=== PATIENT | female | born 2000 | race Caucasian/White ===

== ENCOUNTER 2022-11-01 14:00 | Outpatient (CLI) | payer OTHER, SELFPAY | END 2022-11-01 14:01 | disposition home or self-care (01) | PROVIDERS: Visit Provider Advanced Practice Midwife | DX: Z34.90 Encounter for supervision of normal pregnancy, unspecified, unspecified trimester (principal) | CPT/HCPCS: 86592 ==

== ENCOUNTER 2022-11-29 13:48 | Outpatient (CLI) | payer OTHER, SELFPAY ==
--- NOTE | 2022-11-29 14:00 | CRLHL7_ITS ---
For Patients: As a result of the Century Cures Act, medical imaging exams and procedure reports are released immediately into your electronic medical record. You may view this report before your referring provider. If you have questions, please contact your health care provider. INDICATION: F/U RENAL PELVIS, GROWTH COMPARISON: 09/13/2022 TECHNIQUE: Real time gregg scale imaging of the fetus was performed. FINDINGS: Sonographic imaging demonstrates a single living intrauterine gestation. Fetus demonstrates a regular cardiac rate of 126 beats per minute. Fetus has a vertex position. The placenta lies posterior. Amniotic fluid volume appears normal and there is a single deepest vertical pocket: 6.5 cm. The estimated weight is 2096gm which lies at the 63rd %. On the prior OB ultrasound exam dated 09/13/2022 the estimated weight was at the 96th%. BPD 66th percentile. HC 60th percentile. AC 64th percentile. FL 57th percentile. The HC/AC ratio measures 1.06 range (0.96-1.11). IMPRESSION: Sonographic gestational age 33 weeks 2 days and sonographic due date of 01/15/2023. Sonographic age 1 week ahead of the clinical age. Estimated weight 63rd percentile. Abdominal circumference 64th percentile. The right renal pelvis measures 4.7 millimeters. Left renal pelvis measures 6.7 millimeters. Less than 7 millimeters is considered normal at this gestational age. Dictated by Johnnie Whittaker MD @ 12/03/2022 11:52:14 AM (Electronically Signed)
== END 2022-11-29 13:49 | disposition home or self-care (01) ==
LOC: US 13:49
PROVIDERS: Visit Provider Advanced Practice Midwife
DX: Z34.03 Encounter for supervision of normal first pregnancy, third trimester (principal); Z3A.33 33 weeks gestation of pregnancy
CPT/HCPCS: 76816

== ENCOUNTER 2022-12-26 14:30 | Outpatient (CLI) | payer OTHER, SELFPAY | END 2022-12-26 14:31 | disposition home or self-care (01) | LOC: NFLDREF 01-01 22:24 | PROVIDERS: Visit Provider Advanced Practice Midwife | DX: Z34.03 Encounter for supervision of normal first pregnancy, third trimester (principal) | CPT/HCPCS: 87081; 87653 ==

== ENCOUNTER 2023-01-22 05:35 | Inpatient (IN) | payer OTHER, SELFPAY ==
[2023-01-22] VITALS (20 sets, daily range): BP systolic 110–150; BP diastolic 56–78; PULSE 96–120; RESP 16–18; TEMP 36.4–37.3; O2SAT 97; BMI 29.6
--- NOTE | 2023-01-22 06:10 | P.LDBA_ITS ---
Subjective History of Present Illness Time Seen by Provider: 06:00 Date Seen: 01/22/23 Specific Issues/Plans SO: [facility] ( for a while but back together) Transfer at 25.2 weeks. H & P done 01/06 by Chayito Cordova 1. Hx THC use. Negative UDS at NOB. 2. Anxiety and depression. No medications. 3. Mild dilation of kidneys bilaterally. 32 Us f/u: right 0.5cm, left 0.7cm growth 63% 4. Anemia hgb 10.6. EOD iron. Hgb at 34 weeks 11.4 OB Labs:??? Blood type: O+, antibody screen negative.??? Hgb (06/14/22): 11.2??? Platelets (06/14/22): 235??? Rubella: Immune??? RPR: non-reactive??? HBsAg: negative??? HIV: negative??? GC/Chlamydia: negative/negative??? Pap : no records, 2021 per pt report??? Genetic screening: NIPS negative? Urine drug screen: negative IMAGING:??? 1st trimester: Single live IUP at 7.4 weeks. Radiologist recommended to change NURY based on US to 01/27/23 but did not meet criteria to change dates.??? Anatomy scan: Normal anatomy scan except mild bilateral dilation of the renal pelves. Right kidney: 4.3mm, Left kidney: 4.7mm. No major anomalies are seen. Repeat US recommended at 32 weeks to rule out progression and to check growth.?? TDAP: 11/29/2022 Flu: declines RSV: information given 12/13/22 COVID: declines 32wk Mental Health: 11/29/2022 Comments: Elza is being admitted to Labor and Delivery for labor. She is a 23 year old G 1 P 0 at?40.0 weeks gestation. Her full history and physical was dictated by Chayito Cordova on 01/06/23. Please see this for details. ? She states contractions started at 0300, becoming stronger and more intense. Denies any SROM. She is coping well with labor pain/contractions. Her partner [employer] is with her for support. She is planning nitrous oxide for pain management. She declines a waterbirth (consent not signed, Hep C not collected ). OB - Problem Based A/P Additional Plan (1) Uterine contractions: Status: Acute (2) First : Status: Acute Plan Assessment:?? at 40.0 weeks gestation?? GBS negative Patient is coping well with challenges of labor.?? Labor type: Spontaneous, Early labor? complicated by: -Hx THC use. Negative UDS at NOB. -Anxiety and depression. No medications. -Mild dilation of kidneys bilaterally. Resolved on 32 wk f/u u/s: right 0.5cm, left 0.7cm -Anemia hgb 10.6. EOD iron. Hgb at 34 weeks 11.4. ? Plan:?? * Admit to L & D? * IV access: not needed at this time * Monitoring: Intermittent monitoring per protocol * Candidate for analgesia of choice.? Planning nitrous oxide for pain management * Declines waterbirth. Consent not signed and Hep C not previously collected. * Expectant management at this time * Anticipate progress to NVD Delivery/Labor/Induction Plan Plan: expectant management OB Exam Physical Exam Vital signs: Temp Resp BP Pulse Ox 97.6 F 16 139/76 97 01/22/23 05:00 01/22/23 05:00 01/22/23 05:00 01/22/23 05:00 Narrative: VSS, afebrile? General Appearance:? Calm, cooperative.? No acute distress.? Normal affect.? Psychiatric Exam: Alert and oriented, appropriate affect? HEENT: normocephalic, neck supple, full ROM? Respiratory:? Symmetrical chest wall movement.? Normal respiratory effort.? Clear to auscultation? Cardiac:? regular rate and rhythm? Abdomen: Gravid, non tender? Extremities:? normal and trace edema? Skin: warm, dry.??? Ctx:? Q 2-3 min apart.? Moderate? ? FHTs:? Baseline: 120.? Variability: moderate.?? Accels: present.??? Decels:? Likely none (1 possible variable, but did not trace, and none noted after).? SVE: 4/100/-1? Membranes: intact? Detailed Labor and Delivery Exam Patient Gravid: Yes
[2023-01-22] MEDS: OXYTOCIN 10 UNIT/ML INJ IM (09:20)
[2023-01-22] MEDS: LIDOCAINE 1 % PF 30 ML INJECTION (09:21)
--- NOTE | 2023-01-22 09:39 | W.PM.OBVAGDE ---
OB Procedure Vag Delivery Mother Details Mother Details: The patient is a 23 year-old, 1, Para 1, admitted on 01/22/23 at 40 weeks gestation. : 1 Para: 1 Weeks Gestation: 40 Admission Date: 01/22/23 Additional Details Amniotic Membrane Status: SROM Amniotic Membrane Rupture Date: 01/22/23 Amniotic Membrane Rupture Time: 07:44 Amniotic Membrane Fluid Description: Clear Analgesia/Anesthesia Type: None and Local Waterbirth: No Pitcoin: Yes (AMTSL) Intrapartal Events: None and Precipitous Labor <3 Hrs Labor Onset: 07:15 Complete: 07:53 Pushin:53 Heart: heart tones during second stage were intermittently auscultated before, during, and after contractions and remained reassuring throughout. Delivery Details Delivery Date: 01/22/23 Delivery Time: 08:58 Route of delivery: Infant Gender: Male Viability: Alive; Heart Rate Present Position at Delivery: OA Delivery Details: Patient was admitted for spontaneous onset of labor and progressed normally. SROM noted at 0744 with clear fluid. Patient was assumed complete with pushing at 0753. of a viable male at 0858 in kneeling position on the bed. Vertex delivered OA. Nuchal cord reduced after delivery of head. No shoulder. Body delivered easily and without incident. Infant passed to mothers abdomen with a vigorous cry. Cord was clamped and cut at > 5 minutes. APGARS were 8 at one minute and 9 at five minutes respectively. Mouth was bulb suctioned. Intact placenta with a 3 vessel cord delivered spontaneously at 0916. IM pitocin given for AMTSL. Fundus firm. Perineal abrasion, no repair necessary, and bilateral periurethral identified and repaired in typical fashion with local injection of lidocaine 2%. QBL 100 cc. Mother and baby stable; mother plans to breastfeed. Infant weight 7 lb 11 oz. 1 Minute Interval Total Score: 8 5 Minute Interval Total Score: 9 Additional Details Shoulder Dystocia: No Placenta Delivery Time: 09:16 Placental Delivery Description: Spontaneous Delivery repair: Vicryl Procedure Done: Global Blood Loss: 100 Laceration: Periurethral - 1st Degree (Bilateral) Blood Loss Measurement Type: QBL Bakri Used: No Sponge/Need Count Correct: Yes Cord Vessel Description: 3 Vessels, Nuchal Cord and Reduced Event Summary Status: Mother and infant were stable after delivery. Disposition: floor
[2023-01-23 00:35] VITALS: BP 103/64; PULSE 98; RESP 16; TEMP 37.1; O2SAT 96
[2023-01-23 04:50] VITALS: BP 107/61; PULSE 98; RESP 16; TEMP 36.9; O2SAT 96
--- NOTE | 2023-01-23 07:52 | P.OBPN_ITS ---
OB - PN:Subj Subjective Date Seen: 01/23/23 Patient comments OB post-: no complaints and pain well controlled [place] infant status: and doing well [place] feeding status: exclusively Narrative: Elza is a 23 y.o. who was admitted to L & D for labor.? She had an uncomplicated NVD.? ?? The patient feels well.? The pain is well controlled with current medications.? She has no new complaints.? She is breast feeding and reports things are going well.? the patient has done well.? Vitals have been stable.? She has remained afebrile.? Has a good appetite, is tolerating a general diet.? She is voiding without difficulty.? She is passing gas and has not had a bowel movement.? She is ambulating and denies any dizziness.? Has Small amount of rubra lochia.? OB - PN: Obj Exam Physical Exam: Vital signs: Temp Pulse Resp BP Pulse Ox O2 Del Method 98.5 F 98 16 107/61 96 Room Air 01/23/23 04:50 01/23/23 04:50 01/23/23 04:50 01/23/23 04:50 01/23/23 04:50 01/23/23 04:50 Narrative: GENERAL APPEARANCE:? normal affect, alert, no distress? MOOD:? appropriate? HEENT: normocephalic, neck supple, full ROM? CHEST:? Symmetrical chest wall movement.? Normal respiratory effort.? Clear to auscultation ? HEART:? regular rate and rhythm? ABDOMEN:? soft, non-tender. Uterine fundus is firm, 1 below Umbilicus, Midline and is appropriate for the stage of recovery.? Bowel sounds present.? PERINEUM:? mild edema of the perineum, there is a 1st degree periurethral laceration that is healing well.? EXTREMITIES:? normal and no edema? OB - PN: Obj Data Labs Labs: Laboratory Results - last 24 hr 01/23/23 06:05 Hgb 10.0 L OB - PN: A/P Delivery Assessment and Plan (1) care and examination immediately after delivery: Status: Acute (2) Lactating mother: Status: Acute Plan day: 1 Plan: routine care Comments: G 1 P 1 status post uncomplicated NVD??? 1.? Continue route PP cares? 2.? .? May see if desired? 3.? Anticipate discharge home tomorrow?
[2023-01-23 08:28] VITALS: BP 100/60; PULSE 92; RESP 16; TEMP 36.4; O2SAT 96
[2023-01-23] MEDS: DOCUSATE SODIUM 100 MG CAPSULE PO (08:37)
[2023-01-23 16:32] VITALS: BP 105/61; PULSE 90; RESP 16; TEMP 36.9; O2SAT 97
[2023-01-24 00:56] VITALS: BP 107/62; PULSE 87; RESP 18; TEMP 36.7; O2SAT 96
[2023-01-24 07:50] VITALS: BP 96/60; PULSE 93; RESP 16; TEMP 36.6; O2SAT 97
[2023-01-24] MEDS: DOCUSATE SODIUM 100 MG CAPSULE PO (07:53)
--- NOTE | 2023-01-24 08:08 | PM.OBDSVD1 ---
DS: Providers Provider Date Seen: 01/24/23 Date of admission: 01/22/23 05:35 Primary care physician: Not a Local Provider Admitting Clinician: Penny Cordova CNM Attending Physician on discharge: Penny Cordova CNM Date of Discharge: 01/24/23 DS: Diagnosis Discharge Diagnosis (1) Lactating mother: Status: Acute (2) care following vaginal delivery: Status: Acute (3) JONH (generalized anxiety disorder): Status: Chronic Exam Narrative: Exam Narrative: GENERAL APPEARANCE:? normal affect, alert, no distress? MOOD:? appropriate? CHEST:? clear to auscultation and percussion? HEART:? regular rate and rhythm? ABDOMEN:? soft, non-tender the uterine fundus is U/2 and is appropriate for the stage of recovery.? PERINEUM:? mild edema of the perineum, there is a 1st that is healing well.? EXTREMITIES:? normal and no edema? Const: Vital Signs, click to edit/add: Vital Signs - 24 hr 01/23/23 08:28 01/23/23 16:32 01/24/23 00:56 Temperature 97.6 F 98.5 F 98.0 F Pulse Rate [Blood Pressure Cuff] 92 90 87 Respiratory Rate 16 16 18 Blood Pressure [Ri ght Arm] 100/60 105/61 107/62 Pulse Oximetry 96 97 96 Oxygen Delivery Me thod Room Air Room Air Room Air Documenting provider has reviewed patient's vital signs: yes OB - DS: Summary Hospital Course Hospital Course: The patient is a 23 year old G 1 P 1 at 40.2 weeks gestation that was admitted to the Center on 01/22/23 for active labor at term. She had an uncomplicated vaginal delivery. She delivered a viable male infant. She is breast feeding and feels that it is going well. The pain is well controlled with current medications.? She has no new complaints.? Urinary output is adequate and she is voiding without difficulty.? Has a good appetite, is tolerating a general diet, is passing flatus, and has not had a bowel movement.? Has scant amount of rubra lochia.? She is ambulating well.? the patient has done well. She is planning on mini pill for control. She has a history of anxiety. Denies need for medication at this time. Reviewed warning signs and she is aware to contact us if concerns arise. Her Hgb is 10.0 and she plans to continue taking her PO iron supplementation EOD. Peripartum Data delivery method: Vaginal Laceration description: Perineal - 1st Degree Episiotomy description: None complications: none [place] Gender: Male Infant Discharge Plan: Home Status at Discharge Functional status at discharge: independent ambulation Overall status at discharge: patient is progressing back to baseline Time Spent with Patient Time attestation: Total time spent providing and/or coordinating discharge services: Discharge Plan Discharge Disposition: Home, Self-Care Date of Admission: 01/22/23 05:35 Attending Provider on Discharge: Paty Mcbride Primary Care Provider: Provider,Not a Local Condition: Stable Anticipated Discharge Date/Time: 01/24/23 10:00 Discharge Medications: New docusate sodium 100 mg Capsule 100 mg PO DAILY Qty: 90 0RF Rx Instructions: Take 1-2 tablets daily as needed for constipation. ibuprofen 600 mg Tablet 600 mg PO Q6H PRNQty: 30 0RF Continued PNV-DHA 27 mg iron-1 mg -300 mg capsule 1 cap PO QDAY Qty: 90 3RF ferrous sulfate [Feosol] 325 mg (65 mg iron) tablet 325 mg PO Q OTHER DAY Discharge Orders: Discharge Order (Routine); Ordered 01/24/23 Ordered By: Paty Mcbride Patient Education: OB Over the Counter Medication Information, OB Vaginal/Breast Feeding Additional Instructions: Discharge instructions were reviewed with the patient including signs and symptoms of infection and home going medications.? Lifting Restrictions: 20 pounds for 6? weeks? ?? Do not drive while taking narcotic pain meds.? Off Work or School for 6 weeks.? ?? Symptoms to report to doctor:? -Bleeding that saturates more than one pad per hour? -Passing clots larger than the size of a golf ball? -Pain not relieved by prescribed medication? -Fever above 100.4 degrees Fahrenheit? -A foul vaginal odor? -Difficulty in emotions, mood and functions? -Thoughts of hurting yourself and/or ? -Painful, reddened area in your breast? -Any drainage, redness or tenderness in your IV/epidural site? -Severe headache that doesn't improve after taking medications? -Changes in vision, including temporary loss of vision, blurred vision, and/or light sensitivity? -Upper abdominal pain (usually under ribs on the right side)? -Decrease in urination or painful, frequent urinating? -Chest pain? -Shortness of breath? -Tenderness or pain with redness and/swelling in the calf(s) of your leg? ?? Follow Up in clinic in 2 and 6 weeks.? ?? consultation services are available to all mothers and babies for the first year after delivery.? To make an appointment, please call [phone].? Follow Up Appointments: [facility] [Provider Group] Provider,Not a Local [Primary Care Provider] - Forms: MyHealth Info Instructions
== END 2023-01-24 12:39 | disposition home or self-care (01) | DRG 807 ==
LOC: OB 05:35
PROVIDERS: Advanced Practice Midwife; Admitting Provider Advanced Practice Midwife; Visit Provider Advanced Practice Midwife
DX: O99.344 Other mental disorders complicating childbirth (principal); Z37.0 Single live birth; F32.A Depression, unspecified; O70.0 First degree perineal laceration during delivery; F41.1 Generalized anxiety disorder; Z3A.40 40 weeks gestation of pregnancy; O99.02 Anemia complicating childbirth; D64.9 Anemia, unspecified
CPT/HCPCS: 36415; 85018; A9270; J2001; J2590

== ENCOUNTER 2023-11-07 14:00 | Outpatient (CLI) | payer OTHER, MEDICAID, SELFPAY ==
[2023-11-07 18:35] LABS: Chlamydia DNA Amplified* NOT DETECTED (No Detected); GC DNA Amplified* NOT DETECTED (No Detected)
== END 2023-11-07 14:01 | disposition home or self-care (01) ==
PROVIDERS: Visit Provider Midwife
DX: Z34.91 Encounter for supervision of normal pregnancy, unspecified, first trimester (principal); Z3A.12 12 weeks gestation of pregnancy
CPT/HCPCS: 76801; 86592; 86703; 86704; 86706; 86762; 86787; 86803; 86850; 86900; 86901; 87086; 87340; 87491; 87591

== ENCOUNTER 2024-01-02 07:11 | Outpatient (CLI) | payer OTHER, MEDICAID, SELFPAY ==
--- NOTE | 2024-01-02 07:15 | CRLHL7_ITS ---
For Patients: As a result of the Century Cures Act, medical imaging exams and procedure reports are released immediately into your electronic medical record. You may view this report before your referring provider. If you have questions, please contact your health care provider. INDICATION: Evaluate anatomy. COMPARISON: 11/07/2023 TECHNIQUE: Real time gregg scale imaging of the fetus was performed as well as color Doppler analysis of the umbilical vessels. FINDINGS: Sonographic imaging demonstrates a single living intrauterine gestation. Fetus demonstrates a regular cardiac rate of 145 beats per minute. Fetus has a variable position. The placenta lies anteriorly without evidence of placenta previa. Edge of the placenta is located 2.8 cm from the internal cervical os. Amniotic fluid volume appears normal. Single deepest vertical pocket: 5.2 cm. The cervix is closed and measures 4.1 cm in length. The composite ultrasound gestational age is calculated at 20 weeks 6 days with an estimated sonographic due date of 05/15/2024. The estimated weight is 358 grams which lies at the 41st %. The following biometric measurements were obtained: Biparietal diameter: 4.8 cm/20 weeks 3 days 46th% Head circumference: 17.8 cm/20 weeks 2 days 26th% Abdominal circumference: 15.6 cm/20 weeks 5 days 50th% Femur length: 3.3 cm/20 weeks 2 days 31st% The HC/AC ratio measures: 1.14 range (1.06-1.25) On anatomic survey, there is a normal appearance of the cerebral ventricles, cavum septi pellucidi, cisterna magna and cerebellum. The nose, lips, and facial profile appear normal. The cervical, thoracic and lumbar spine are incompletely visualized. There is a normal four-chamber heart view and the left and right ventricular outflow tracts appear normal. The diaphragm and stomach appear normal. The kidneys and bladder also appear normal. There is a normal three-vessel cord and there is an eccentric placental cord insertion site located 2.2 cm from the placental edge. The four extremities appear normal. IMPRESSION: Concordance of clinical and sonographic dating. Incomplete visualization of the spine. Remainder of the anatomic survey normal. Short-term follow-up recommended. Dictated by Johnnie Whittaker MD @ 01/02/2024 12:25:53 PM (Electronically Signed)
== END 2024-01-02 07:12 | disposition home or self-care (01) ==
LOC: US 07:12
PROVIDERS: Visit Provider Midwife
DX: Z34.92 Encounter for supervision of normal pregnancy, unspecified, second trimester (principal); Z3A.20 20 weeks gestation of pregnancy
CPT/HCPCS: 76805

== ENCOUNTER 2024-01-30 09:10 | Outpatient (CLI) | payer MEDICAID, SELFPAY ==
--- NOTE | 2024-01-30 09:15 | CRLHL7_ITS ---
For Patients: As a result of the Century Cures Act, medical imaging exams and procedure reports are released immediately into your electronic medical record. You may view this report before your referring provider. If you have questions, please contact your health care provider. INDICATION: f/u SPINE from anatomy scan COMPARISON: 01/02/2024 TECHNIQUE: Real time gregg scale imaging of the fetus was performed. FINDINGS/IMPRESSION: Sonographic imaging demonstrates a single living intrauterine gestation. Fetus demonstrates a regular cardiac rate of 152 beats per minute. Fetus has a vertex position. The placenta lies anteriorly. Amniotic fluid volume appears normal. Single deepest vertical pocket: 4.7 cm. The composite ultrasound gestational age is calculated at 24 weeks 3 days with an estimated sonographic due date of 05/18/2024. The estimated weight is 701 grams which lies at the 36th %. The following biometric measurements were obtained: Biparietal diameter: 5.9 cm/24 weeks 0 days 22nd% Head circumference: 22.7 cm/24 weeks 5 days 34th% Abdominal circumference: 20.1 cm/24 weeks 5 days 45th% Femur length: 4.3 cm/24 weeks 1 day 25th% The HC/AC ratio measures: 1.13 range (1.04-1.22) The cervical, thoracic and lumbar spine are well visualized and appear normal. Dictated by Johnnie Whittaker MD @ 01/30/2024 10:07:02 AM (Electronically Signed)
== END 2024-01-30 09:11 | disposition home or self-care (01) ==
LOC: US 09:10
PROVIDERS: Visit Provider Midwife
DX: O35.FXX0 Maternal care for other (suspected) fetal abnormality and damage, fetal musculoskeletal anomalies of trunk, not applicable or unspecified (principal); Z3A.24 24 weeks gestation of pregnancy
CPT/HCPCS: 76816

== ENCOUNTER 2024-02-27 09:50 | Outpatient (CLI) | payer MEDICAID, SELFPAY | END 2024-02-27 09:51 | disposition home or self-care (01) | LOC: NFLDREF 03-01 06:16 | PROVIDERS: Visit Provider Advanced Practice Midwife | DX: Z34.93 Encounter for supervision of normal pregnancy, unspecified, third trimester (principal); Z3A.28 28 weeks gestation of pregnancy | CPT/HCPCS: 86592 ==

== ENCOUNTER 2024-04-09 11:22 | Outpatient (CLI) | payer MEDICAID, SELFPAY | END 2024-04-09 11:23 | disposition home or self-care (01) | LOC: NFLDREF 04-10 13:10 | PROVIDERS: Visit Provider Advanced Practice Midwife | DX: Z34.93 Encounter for supervision of normal pregnancy, unspecified, third trimester (principal); Z3A.34 34 weeks gestation of pregnancy | CPT/HCPCS: 82728 ==

== ENCOUNTER 2024-04-22 13:15 | Outpatient (CLI) | payer MEDICAID, SELFPAY | END 2024-04-22 13:16 | disposition home or self-care (01) | LOC: NFLDREF 04-25 07:05 | PROVIDERS: Visit Provider Advanced Practice Midwife | DX: Z34.83 Encounter for supervision of other normal pregnancy, third trimester (principal) | CPT/HCPCS: 87081; 87653 ==

== ENCOUNTER 2024-05-18 11:30 | Inpatient (IN) | payer MEDICAID, SELFPAY ==
[2024-05-18] VITALS (29 sets, daily range): BP systolic 110–136; BP diastolic 57–72; PULSE 82–122; RESP 16–18; TEMP 36.6–36.9; O2SAT 94–99; BMI 29.2
[2024-05-18 10:54] LABS: Amnisure Rom* POSITIVE
--- NOTE | 2024-05-18 12:25 | P.LDBA_ITS ---
Subjective History of Present Illness Narrative: Elza is being admitted to Labor and Delivery for PROM. She is a 24 year old at 40.1 weeks gestation. Her full history and physical was dictated by Dilip Mei CNM on 04/30/24. Please see this for details. Elza had AROM around 0130 this am but has only felt a gradual increase in cramping since them. We discussed augmentation and risks of prolonged AROM. We discussed augmenting with Pitocin vs expectant management. She would like to proceed with expectant management. She would like to pump, do labor warm up and consider stripping her membranes to help encourage spontaneous contractions. With cervical exam she was 3cm/80%/-2 but was able to easily stretch to 4cm. Did palpate a budging bag on exam. discussed AROM of the forebag which she desired and was performed. AROM with a moderate amount of clear fluid. Specific Issues/Plans G 2 P 1001 Partner:??Harinder Son: Johny H&P completed by Dilip Alejandro CNM on 04/30/24?? ? #Short interval # Rubella [id number] PP #Anemia 10.8 recommended iron supplementation at 34 weeks Imaging:? 1st trimester: 11/07/2023 SLIUP 12 w4d, NURY by US 05/18/2023 Anatomy: 01/02/2024 Normal findings but inadequate views of spine, F/U 4 weeks ordered?? 01/30/2024: Follow up with normal findings and growth ? COVID:??declined Flu:??declined? Tdap:?03/26/24 RSV:03/26/24? Hep B: non-immune, not high risk 32wk Mental Health:?03/26/2024 34wk hgb: 04/09/2024 (10.8) Pap: (Only high-risk abnormal pap in problem list)? OB - Problem Based A/P Additional Plan (1) PROM (premature rupture of membranes): Status: Acute (2) Short interval between pregnancies affecting , antepartum: Status: Acute (3) JONH (generalized anxiety disorder): Problem details: No current meds Status: Chronic (4) Anemia: Status: Acute Plan ASSESSMENT:? at 40.1 weeks gestation? GBS negative? complicated by: sport interpregnancy interval, JONH, anemia? Labor type: PROM, expectant management ? Blood type:?O+ ?? PLAN:? 1. Reviewed risks and benefits of augmentation with Pitocin vs expectant management vs AROM of fore bag. Pt prefers AROM followed by expectant management at this time. Will reevaluate for need for further intervention in 4-2. hours and PRN. Encouraged pumping and labor warm up circuit.? 3. Candidate for analgesia of choice. Planning unmedicated .? 4. Anticipate ? 5. Expectant management at this time.? 6. IV not needed at this time. Consider if patient condition changes. 7. Intermittent monitoring per policy. Delivery/Labor/Induction Plan Plan: expectant management OB Result Labs Blood Type: O (+) positive Rubella: immune RPR/VDLR: nonreactive GBS Status: negative HBsAG: negative OB Exam Physical Exam Vital signs: Temp Pulse BP Pulse Ox 98.3 F 117 H 110/70 98 05/18/24 12:22 05/18/24 10:27 05/18/24 10:27 05/18/24 11:00 Narrative: Psychiatric:? Alert and oriented x3? HEENT:? Normocephalic, atraumatic? Neck:? Supple without adenopathy or thyromegaly? Lungs:? Clear to auscultation bilaterally? Heart:? Regular rate and rhythm, no murmur, rub or gallop? Abdomen:? Soft, nontender, and gravid? Extremities:? No edema or erythema? Detailed Labor and Delivery Exam Patient Gravid: Yes Dilation (cm): 3 Effacement (%): 80 Cervix position: mid Consistency: soft Contraction Frequency: occasional cramping/tightening Contraction intensity: Mild Fetus (Single) Station: -2 Amniotic Membrane Status: SROM (AROM of fore bag ) Amniotic Membrane Fluid Description: Clear Heart Rate Baseline: 140 Monitor Accelerations: Present Monitor Decelerations: None (one variable at beginning of tracing, now resolved. ) Group Home Variability: Moderate (6-25)
--- NOTE | 2024-05-18 17:45 | W.PM.OBVAGDE ---
OB Procedure Vag Delivery Mother Details Mother Details: The patient is a 24 year-old, 2, Para 1, admitted on 05/18/24 at Days gestation. : 2 Para: 2 Weeks Gestation: 40.1 Admission Date: 05/18/24 Additional Details Amniotic Membrane Status: SROM (AROM of fore bag ) Amniotic Membrane Rupture Date: 05/18/24 Amniotic Membrane Rupture Time: 01:00 Amniotic Membrane Fluid Description: Clear Analgesia/Anesthesia Type: None Waterbirth: No Pitcoin: No Intrapartal Events: Precipitous Labor <3 Hrs Delivery augmentation: rupture of membranes (AROM of fore bag) Labor Onset: 16:40 Complete: 17:18 (presumed with spontaneous pushing ) Pushin:18 Heart: heart tones during second stage were not obtained by doppler as it only lasted 2 minutes. Before second stage they were auscultated in the 150's without decreases heard. Delivery Details Delivery Date: 05/18/24 Delivery Time: 17:20 Route of delivery: Gender: Female Infant Viability: Alive; Heart Rate Present Position at Delivery: OA Delivery Details: Patient was admitted for PROM and progressed with AROM of a fore bag for augmentation. SROM noted at 0100 with clear fluid. Patient was presumed complete with spontaneous pushing at 1718. of a viable female at 1720 in hands and knees in the bed. Vertex delivered OA. No nuchal cord or shoulder. Body delivered easily and without incident. Infant passed to through the mothers legs to her abdomen with a vigorous cry. Cord was clamped and cut at > 5 minutes. APGARS were 8 at one minute and 9 at five minutes respectively. Mouth was bulb suctioned. Intact placenta with a 3 vessel cord delivered spontaneously at 1733. Fundus firm. No lacerations were identified. QBL 25 cc. Mother and baby stable; mother plans to breastfeed. weight pending.? 1 Minute Interval Total Score: 8 5 Minute Interval Total Score: 9 Additional Details Shoulder Dystocia: No Placenta Delivery Time: 17:33 Placental Delivery Description: Spontaneous Procedure Done: Global Blood Loss: 25 Laceration: None Blood Loss Measurement Type: QBL Bakri Used: No Sponge/Need Count Correct: Yes Cord Vessel Description: 3 Vessels Event Summary Status: Mother and were stable after delivery. Disposition: floor
[2024-05-18] MEDS: OXYTOCIN 10 UNIT/ML INJ IM (18:32)
[2024-05-18] MEDS: miSOPROStoL 800 MCG/4 TABLET PR (18:53)
[2024-05-18] MEDS: IBUPROFEN 600 MG TABLET PO (21:11)
[2024-05-19 04:16] VITALS: BP 113/65; PULSE 86; RESP 16; TEMP 36.3; O2SAT 96
[2024-05-19 06:10] LABS: Hemoglobin* 10.2 gm/dL (12.0-16.0)
--- NOTE | 2024-05-19 07:48 | PM.OBDSVD1 ---
DS: Providers Provider Date Seen: 05/19/24 Date of admission: 05/18/24 11:30 Primary care physician: Not a Local Provider Admitting Clinician: Paty Mcbride CNM Attending Physician on discharge: TIFFANIE Tomlinson Date of Discharge: 05/19/24 DS: Diagnosis Discharge Diagnosis (1) care and examination of lactating mother: Status: Acute Exam Narrative: Exam Narrative: GENERAL APPEARANCE:? normal affect, alert, no distress MOOD:? appropriate CHEST:? clear to auscultation HEART:? regular rate and rhythm ABDOMEN:? soft, non-tender the uterine fundus is At Umbilicus, Midline and is appropriate for the stage of recovery. PERINEUM:? no laceration, deferred EXTREMITIES:? normal and minimal edema Const: Vital Signs, click to edit/add: Vital Signs - 24 hr 05/18/24 10:25 05/18/24 10:27 05/18/24 10:27 Temperature 98.3 F Pulse Rate 117 H Pulse Rate [Pulse Oximeter] Respiratory Rate Blood Pressure 110/70 Blood Pressure [Le ft Arm] Pulse Oximetry [facility] 05/[facility] 10:30 05/18/24 10:35 05/18/24 10:40 Temperature Pulse Rate Pulse Rate [Pulse Oximeter] Respiratory Rate Blood Pressure Blood Pressure [Le ft Arm] Pulse Oximetry 97 98 98 [facility] 05/18/24 10:45 05/18/24 10:50 05/18/24 10:55 Temperature Pulse Rate Pulse Rate [Pulse Oximeter] Respiratory Rate Blood Pressure Blood Pressure [Le ft Arm] Pulse Oximetry 98 99 99 [facility] 05/18/24 11:00 05/18/24 12:22 05/18/24 13:47 Temperature 98.3 F 98.2 F Pulse Rate Pulse Rate [Pulse Oximeter] Respiratory Rate Blood Pressure Blood Pressure [Le ft Arm] Pulse Oximetry 98 [facility] 05/18/24 14:45 05/18/24 15:37 05/18/24 16:40 Temperature 98.2 F 98.2 F 97.8 F Pulse Rate 90 90 Pulse Rate [Pulse Oximeter] Respiratory Rate 16 Blood Pressure Blood Pressure [Le ft Arm] Pulse Oximetry [facility] 05/18/24 17:34 05/18/24 17:35 05/18/24 17:49 Temperature 97.8 F Pulse Rate 82 105 H Pulse Rate [Pulse Oximeter] Respiratory Rate 18 Blood Pressure 136/63 116/68 Blood Pressure [Le ft Arm] Pulse Oximetry [facility] 05/18/24 17:49 05/18/24 18:03 05/18/24 18:04 Temperature Pulse Rate 107 H Pulse Rate [Pulse Oximeter] Respiratory Rate 18 18 Blood Pressure 119/72 Blood Pressure [Le ft Arm] Pulse Oximetry [facility] 05/18/24 18:18 05/18/24 18:19 05/18/24 18:33 Temperature Pulse Rate 106 H Pulse Rate [Pulse Oximeter] Respiratory Rate 18 18 Blood Pressure 121/71 Blood Pressure [Le ft Arm] Pulse Oximetry [facility] 05/18/24 18:34 05/18/24 18:48 05/18/24 18:49 Temperature Pulse Rate 93 85 Pulse Rate [Pulse Oximeter] Respiratory Rate 18 Blood Pressure 115/57 L 123/67 Blood Pressure [Le ft Arm] Pulse Oximetry [facility] 05/18/24 19:04 05/18/24 19:04 05/18/24 19:19 Temperature Pulse Rate 92 100 Pulse Rate [Pulse Oximeter] Respiratory Rate 18 Blood Pressure 125/69 132/72 Blood Pressure [Le ft Arm] Pulse Oximetry [facility] 05/18/24 19:19 05/18/24 19:34 05/18/24 19:34 Temperature Pulse Rate 102 H Pulse Rate [Pulse Oximeter] Respiratory Rate 18 18 Blood Pressure 133/68 Blood Pressure [Le ft Arm] Pulse Oximetry [facility] 05/18/24 23:50 05/19/24 04:16 Temperature 98.4 F 97.4 F L Pulse Rate Pulse Rate [Pulse Oximeter] 108 H 86 Respiratory Rate 16 16 Blood Pressure Blood Pressure [Le ft Arm] 114/66 113/65 Pulse Oximetry 94 96 [facility] Room Air OB - DS: Summary Hospital Course Hospital Course: The patient is a 24 year old G 2now P 2003 at 40 1/7 weeks gestation that was admitted to the Center on 05/18/24 for PROM at term. She had an uncomplicated vaginal delivery. She delivered a viable female . She is breast feeding. the patient has done well. Vitals have been stable.? She has remained afebrile.? Has a good appetite, is tolerating a general diet.? She is voiding without difficulty.? She is passing gas and has not had a bowel movement.? She is ambulating and denies any dizziness.? Has small amount of rubra lochia. She is planning an IUD possibly for prevention.? ?? Problems: none? ?? plan:? Discharge home with baby this evening if peds discharges baby.? Follow up in 2 weeks and 6 weeks.? , may see if needed? Hgb 10.2. Iron supplement to be continued at home for a couple of weeks orally every other day? ? Labs WNL or stable with trending? ? ? Call for signs/symptoms of preeclampsia? ation. You may wean off of it when your stools return to normal.? Peripartum Data Infant delivery method: Vaginal Episiotomy description: None Gender: Female Discharge Plan: Home Status at Discharge Overall status at discharge: patient is progressing back to baseline Time Spent with Patient Time attestation: Total time spent providing and/or coordinating discharge services: Time spent: Less than 30 minutes Discharge Plan Discharge Disposition: Home, Self-Care Date of Admission: 05/18/24 11:30 Attending Provider on Discharge: Dia Sparks Primary Care Provider: Provider,Not a Local Condition: Stable Anticipated Discharge Date/Time: 05/19/24 19:48 Discharge Medications: Continued PNV cmb#95-ferrous fumarate-FA 28 mg iron- 800 mcg tablet 1 tab PO QDAY Qty: 90 0RF Discharge Orders: Discharge Order (Routine); Ordered 05/19/24 Ordered By: Dia Sparks Patient Education: OB [place] [facility], OB Vaginal/Breast Feeding Additional Instructions: Discharge instructions were reviewed with the patient including signs and symptoms of infection and home going medications Nothing vaginally for 6 weeks: no tampons or intercourse Do not drive while taking narcotic pain medication(s) Off Work or School for 6 weeks Symptoms to report to doctor: Bleeding that saturates more than one pad per hour Passing clots larger than the size of a golf ball Pain not relieved by prescribed medication Fever above 100.4 degrees Fahrenheit A foul vaginal odor Difficulty in emotions, mood, and functions Thoughts of hurting yourself and/or Painful, reddened area in your breast Any drainage, redness, or tenderness in your IV/epidural site Severe headache that doesn't improve after taking medications Changes in vision, including temporary loss of vision, blurred vision, and/or light sensitivity Upper abdominal pain (usually under ribs on the right side) Decrease in urination or painful, frequent urinating Chest pain Shortness of breath Tenderness or pain with redness and/swelling in the calf(s) of your leg 2-week visit: discuss infant feeding concerns, review control options and screen for anxiety/depression. 6-week visit for an annual exam. consultation services are available to all mothers and babies for the first year after delivery.? To make an appointment, please call [phone]. For pain control of perineum, breast and pelvic pain, take 600 mg Ibuprofen every 6 hours as needed by mouth or 1000 mg acetaminophen (Tylenol) every 6 hours by mouth as needed. You can alternate these so you are taking something every 3 hours as needed. A heating pad can also be used for your abdomen or breasts. You may also take docusate sodium up to twice daily to soften your stools and help to prevent constipation. Activity Level: Activity as Tolerated Discharge Diet: Regular Follow Up Appointments: Provider,Not a Local [Primary Care Provider] - Forms: [employer] Info Instructions
[2024-05-19 08:43] VITALS: BP 104/65; PULSE 100; RESP 16; TEMP 37.4; O2SAT 97
[2024-05-19 13:00] VITALS: BP 112/64; PULSE 100; RESP 16; TEMP 36.9; O2SAT 97
[2024-05-19 16:59] VITALS: BP 107/63; PULSE 96; RESP 16; TEMP 36.7; O2SAT 96
[2024-05-19] MEDS: MEASLES,MUMPS,RUBELLA VACC/PF 1 DOSE INJ 1 EACH SUBCUT (17:20)
--- NOTE | 2024-05-19 20:50 | PC.NURSE ---
Per patient does not want to discharge home tonight.
[2024-05-20 02:19] VITALS: BP 126/76; PULSE 78; RESP 16; TEMP 36.6; O2SAT 97
[2024-05-20 07:34] VITALS: BP 108/69; PULSE 83; RESP 16; TEMP 36.8; O2SAT 96
--- NOTE | 2024-05-20 08:52 | P.DS_ITS ---
DS: Providers Provider Date Seen: 05/20/24 Date of admission: 05/18/24 11:30 Primary care physician: Not a Local Provider Admitting Clinician: Paty Mcbride CNM Attending Physician on discharge: Evita Alejandro CNM Date of Discharge: 05/20/24 DS: Diagnosis Discharge Diagnosis (1) care and examination of lactating mother: Status: Acute (2) Anemia: Status: Acute Exam Narrative: Exam Narrative: VSS, afebrile GENERAL APPEARANCE: ?normal affect, alert, no distress MOOD: ?appropriate HEENT: normocephalic, neck supple, full ROM CHEST: ?Symmetrical chest wall movement. ?Normal respiratory effort. ?Clear to auscultation HEART: ?regular rate and rhythm ABDOMEN: ?soft, non-tender. Uterine fundus is firm, at Umbilicus, Midline and is appropriate for the stage of recovery. ?Bowel sounds present. PERINEUM: ?mild edema of the perineum, intact. EXTREMITIES: ?normal and no edema Const: Vital Signs, click to edit/add: Vital Signs - 24 hr 05/19/24 13:00 05/19/24 16:59 05/20/24 02:19 Temperature 98.4 F 98.0 F 97.8 F Pulse Rate [Pulse Oximeter] 100 96 78 Respiratory Rate 16 16 16 Blood Pressure [Le ft Arm] 112/64 107/63 126/76 Pulse Oximetry 97 96 97 Oxygen Delivery [facility] Room Air Room Air Room Air 05/20/24 07:34 Temperature 98.3 F Pulse Rate [Pulse Oximeter] 83 Respiratory Rate 16 Blood Pressure [Le ft Arm] 108/69 Pulse Oximetry 96 Oxygen Delivery [facility] Room Air Documenting provider has reviewed patient's vital signs: yes OB - DS: Summary Hospital Course Hospital Course: Elza is a 24 y.o. who was admitted to [facility] for labor. ?She had an uncomplicated NVD.?The patient feels well. ?The pain is well controlled with current medications. ?She has no new complaints. ?She is breast feeding and reports things are not going well today, baby is not latching well. She will have nursing help with this before discharge.? the patient has done well.? Vitals have been stable.? She has remained afebrile.? Has a good appetite, is tolerating a general diet. ?She is voiding without difficulty.? She is passing gas and has not had a bowel movement.? She is ambulating and denies any dizziness.? Has Small amount of rubra lochia. ?She is planning an IUD for prevention. Peripartum Data delivery method: Vaginal Laceration description: None complications: none Infant Gender: Female Discharge Plan: Home Status at Discharge Functional status at discharge: independent ambulation Overall status at discharge: patient is progressing back to baseline Time Spent with Patient Time attestation: Total time spent providing and/or coordinating discharge services: Time spent: Less than 30 minutes Discharge Plan Discharge Disposition: Home, Self-Care Date of Admission: 05/18/24 11:30 Attending Provider on Discharge: Dia Sparks Primary Care Provider: Provider,Not a Local Condition: Stable Anticipated Discharge Date/Time: 05/19/24 19:48 Discharge Medications: Continued PNV cmb#95-ferrous fumarate-FA 28 mg iron- 800 mcg tablet 1 tab PO QDAY Qty: 90 0RF Discharge Orders: Discharge Order (Routine); Ordered 05/20/24 Ordered By: Evita Alejandro Patient Education: OB [place] [facility], OB Vaginal/Breast Feeding, OB Over the Counter Medication Information Additional Instructions: Discharge instructions were reviewed with the patient including signs and symptoms of infection and home going medications Nothing vaginally for 6 weeks: no tampons or intercourse Off Work or School for 6 weeks Symptoms to report to doctor: * Bleeding that saturates more than one pad per hour * Passing clots larger than the size of a golf ball * Pain not relieved by prescribed medication * Fever above 100.4 degrees Fahrenheit * A foul vaginal odor * Difficulty in emotions, mood, and functions * Thoughts of hurting yourself and/or * Painful, reddened area in your breast * Any drainage, redness, or tenderness in your IV/epidural site * Severe headache that doesn't improve after taking medications * Changes in vision, including temporary loss of vision, blurred vision, and/or light sensitivity * Upper abdominal pain (usually under ribs on the right side) * Decrease in urination or painful, frequent urinating * Chest pain * Shortness of breath * Tenderness or pain with redness and/swelling in the calf(s) of your leg 2-week visit: discuss infant feeding concerns, review control options and screen for anxiety/depression. 6-week visit for an annual exam. consultation services are available to all mothers and babies for the first year after delivery.? To make an appointment, please call [phone]. For pain control of perineum, breast and pelvic pain, take 600 mg Ibuprofen every 6 hours as needed by mouth or 1000 mg acetaminophen (Tylenol) every 6 hours by mouth as needed. You can alternate these so you are taking something every 3 hours as needed. A heating pad can also be used for your abdomen or breasts. You may also take docusate sodium up to twice daily to soften your stools and help to prevent constipation. Activity Level: Activity as Tolerated Discharge Diet: Regular Follow Up Appointments: [facility] [Provider Group] Forms: [facility] Info Instructions
== END 2024-05-20 11:26 | disposition home or self-care (01) | DRG 807 ==
LOC: OB OUT 11:30 → OB 11:30
PROVIDERS: Admitting Provider Advanced Practice Midwife; Visit Provider Advanced Practice Midwife
DX: O42.02 Full-term premature rupture of membranes, onset of labor within 24 hours of rupture (principal); Z37.0 Single live birth; Z3A.40 40 weeks gestation of pregnancy; O99.02 Anemia complicating childbirth; D64.9 Anemia, unspecified; O99.344 Other mental disorders complicating childbirth; F41.1 Generalized anxiety disorder; Z78.9 Other specified health status
CPT/HCPCS: 36415; 84112; 85018; 86592; G0463; A9270; J2590

== ENCOUNTER 2024-05-21 11:13 | Outpatient (CLI) | payer MEDICAID, SELFPAY ==
--- NOTE | 2024-05-21 15:27 | P.LACCB_ITS ---
Consult Note - Mom Date of Visit Date of visit: 05/21/24 Reason for consultation: Assistance Needed and Infant Weight Concern Visit Code: Visit Patient's Information Phone number: [phone] : 2 Para: 2 Allergies No Known Drug Allergies Allergy (Verified 05/18/24 10:32) Mother's Medical History: Medical History (Updated 05/19/24 @ 08:49 by Dia Sparks CNM) Pelvic floor weakness ?N81.89 - Other female genital prolapse (ICD-10) JONH (generalized anxiety disorder) ?F41.1 - Generalized anxiety disorder (ICD-10) Delivery Information Delivery type: Vaginal Gestational Age: 40+1 Gestational Weight For Age: AGA Weight: 3.435 kg Discharge Weight: 3.18 kg Percentage weight loss: 7.5 Baby's Information Baby's Age at Visit: 3 days Baby's Provider or Clinic: [facility] Jaundice: No Past Experience Past Experience: Yes (currently nursing her 16 month old son) Current Frequency of Day Feedings: every 1-2 hours Frequency of Night Feedings: same Both Breasts: Yes Suck: has gotten weaker since left the hospital Latch: wide, deep, comfortable Length of Time: 15-20 min x1, 10 min on 2nd side Goals: at least 1 year Pumping Pumping: No Quantity Pumped: hand pumped here for a little milk to entice baby to latch; easily got 5ml Supplementing EBM Supplement: No Formula Supplement: No Baby Elimination Number of Wet Diapers a Day: 7 in last 24 hours Number of BM a Day: 6 in last 24 hours, most recent was yellow, not yet seedy Breast/Nipple Condition Breast Information: Breasts are symmetrical with rounded lower quadrants, intramammary distance is less than 1.5 inches. No erythema. Nipples are supple, everted prior to feeding. 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 when suckling) Palate: Narrow (slight) Lips: Symmetrical Jaw Alignment: Symmetrical Mucosa: [place], moist Onsite Observation Pre-Feed weight: 3.062 kg (10.9% weight loss) Post-Feed weight: 3.068 kg Milk Transferred (mL): 6 Position: Cross cradle Attachment/latch-on achieved: With difficulty (baby very frustrated at the breast; has been 2.5 hrs since last fed, took 15 min just to get her latched; seems to suck well but minimal milk transferred) Swallow: Occasionally Behavior following feed: Relaxed, sleepy Pre-Nursing Left Nipple: Within Normal Limits Pre-Nursing Right Nipple: Within Normal Limits Post-Nursing Left Nipple: Within Normal Limits Post-Nursing Right Nipple: Within Normal Limits Assessments/Interventions Education provided: Asymmetric latch technique for wide/deep latch to increase milk, Transfer for baby and increase comfort for mom, Supply/demand nature of milk supply, Need for frequent stimulation/milk removal, Alternative feeding methods (SNS, cup, finger feeding, bottling) and Pumping for milk management (and to supplement baby at 10.9% weight loss) Handouts Provided: Feeding plan Suck training exercises: given and reviewed Dental resources for posterior tongue tie assessment and revision Alternative therapies for craniosacral therapy Paced bottle feeding Feeding Plan: Breastfeed for 5-10 on each breast, listening for active swallowing Pump both breasts for: 10-15 minutes after each feeding; as long as needed to have milk to supplement baby Feed baby 30-45 ml of pumped every 2-3 hours based on feeding cues Use a syringe/feeding tube, cup, or bottle for feedings based on preference- bottle options discussed Rest, and repeat every 2-3 hours, watch for early feeding cues Discussed unclear at this point if babe having a hard time sustaining latch due to weight loss and fatigue or posterior tongue tie Tongue tie education shared - babe has slight restriction that may or may not improved with suck training and PROGRAM PROFESSIONAL Follow-Up Recommend baby be seen by provider for:: Has appt in clinic for 05/24 F/u with based on how weekend feedings go and how weight is in 3 days Time Spent Time spent with patient (min): 90 Meds Home Medications and Allergies Allergies Allergy/AdvReac Type Severity Reaction Status Date / Time No Known Drug Allergies Allergy Verified 05/18/24 10:32
== END 2024-05-21 11:14 | disposition home or self-care (01) ==
PROVIDERS: Visit Provider Pediatrics
DX: Z39.1 Encounter for care and examination of lactating mother (principal)
CPT/HCPCS: G0463

== ENCOUNTER 2024-07-02 14:09 | Outpatient (CLI) | payer MEDICAID, SELFPAY ==
[2024-07-02 19:03] LABS: Chlamydia DNA Amplified* NOT DETECTED (No Detected); GC DNA Amplified* NOT DETECTED (No Detected)
[2024-07-08 04:47] LABS: HPV Source Cervical; HPV, High Risk by TMA Not Detected
== END 2024-07-02 14:10 | disposition home or self-care (01) ==
PROVIDERS: Visit Provider Midwife
DX: Z12.4 Encounter for screening for malignant neoplasm of cervix (principal); Z11.51 Encounter for screening for human papillomavirus (HPV); Z11.3 Encounter for screening for infections with a predominantly sexual mode of transmission
CPT/HCPCS: 87491; 87591; 87624; 87625; 88141; 88142